=== PATIENT | female | born 1950 | race Native Hawaiian/Other Pacific Islander ===

== ENCOUNTER 2016-08-13 14:09 | Emergency (ER) | payer OTHER ==
[~2016-08-13] VITALS: Ht 165.1 cm; Wt 71.8 kg
[2016-08-13 14:16] VITALS: BP 135/78; PULSE 58; RESP 16; O2SAT 98
[2016-08-13] MEDS ORDERED: TdaP Vaccine 0.5 mL Inj IM ONE (16:20)
--- NOTE | 2016-08-13 16:24 | ED.REPORT ---
HPI-Extremity Problem Upper Date of Service Aug 13, 2016 ED Provider: Donal Mae History of Present Illness: 65yo female sustained laceration to R volar hand at base of 5th finger while washing dishes just prior to arrival. Last Td 2009. No other injuries. Nursing Notes Stated Complaint: CUT HAND/FINGER Chief Complaint: Laceration Nursing Notes Reviewed: Yes Allergies: Coded Allergies: No Known Allergies (Unverified , 08/13/16) General Time Seen by MD: 15:19 Chief Complaint Hand injury right Hx Obtained From: Patient Arrived By: Walk-in Onset Occurred: Just prior to arrival Symptom Duration: Since onset Caused by: Accidental Context: Occurred at: Home injury Location: : Hand right Severity: Current: Mild Severity: Maximum: Moderate Pertinent Negative: Pt denies other symptoms Exacerbated by: Range of motion Relieved by: Rest Immunizations: Tetanus w/in 5 - 10 yrs Recent Healthcare: No recent doctor visit Similar Sx Previous: No Past Medical History Past Medical History denies Past Surgical History denies Smoking History Never Smoker Social History Alcohol Use: Denies alcohol use Ambulatory Status Independent Review of Systems Basic Review of Systems Respiratory: No shortness of breath GI: No abdominal pain Constitutional: Denies: Chills, Fever Musculoskeletal: Reports: Extremity pain, Denies: Joint pain Neurologic: Denies: Weakness Cardiovascular: Denies: Chest pain Physical Exam Initial Vital Signs Vital Signs (First) Date Time Temp Pulse Resp B/P Pulse Ox O2 Delivery O2 Flow Rate FiO2 08/13/16 14:16 36.2 58 16 135/78 98 Room Air Initial VS: Vital signs normal General/Constitutional: Awake, Alert, No acute distress Respiratory / Chest: Breath sounds NL, Breath sounds = bilat, No respiratory distress Cardiovascular: Heart rate NL, Regular rhythm, Heart sounds NL Right Hand: Negative: Neuro deficit present..., ROM reduced, Tendon injury extensor, Tendon injury flexor Trauma / Burn / Environmental: Positive: Laceration 1.0cm horizontal lac at volar base of R 5th finger Procedures Laceration Management Time: 16:00 Procedure Performed by: Allied health pract Consent / Setup / Site Prep: Consent from patient, Hand hygiene observed, Stand sterile technique Wound Length: 1 cm Local Anesthesia: Lidocaine 1% Wound Preparation: Betadine Debridement: None Irrigation: 50 cc Foreign Body Explore / Removal: Explored for foreign body Repair Skin: ___ O (4) # Sutures - Skin: 2 Suture Technique: Simple Post-Procedure / Complications: Antibiotic oint applied, Dressing applied, No complications, Tolerated procedure well, Patient stable Re-Eval/Medical Decision Med Decision/Clinical Course Simple R hand lac repair. Tdap updated. Pt. should do well with with simple home wound care. Sutures out in 10 days. Discharge & Departure Impression: Primary Impression: Laceration of right hand Encounter type: initial encounter Foreign body presence: without foreign body Qualified Code: S61.411A - Laceration without foreign body of right hand , initial encounter Disposition: Home Patient Instructions: Acute Wound Care (GEN) Additional Instructions: Keep clean and dry, but daily soap and water is ok. Apply bacitracin daily, keep open to air at night. Sutures out 08/23. Return to ER if any problems. Referrals: [facility] Resident Clinic EDSupervising Provider for APC: Javier Green Christopher R PAC Aug 13, 2016 16:24
[2016-08-13 16:36] VITALS: BP 164/94; PULSE 55; RESP 14; O2SAT 98
== END 2016-08-13 16:37 | disposition home or self-care (01) ==
LOC: SED 14:09
DX: S61.411A Laceration without foreign body of right hand, initial encounter (principal); Z23 Encounter for immunization; W26.8XXA Contact with other sharp object(s), not elsewhere classified, initial encounter; Y93.G1 Activity, food preparation and clean up; Y92.89 Other specified places as the place of occurrence of the external cause; Y99.8 Other external cause status